=== PATIENT | female | born 1975 | race Caucasian/White ===

== ENCOUNTER 2022-03-24 11:15 | Outpatient (CLI) | payer BC, SELFPAY ==
[2022-03-24 13:34] LABS: Vitamin D 25 Hydroxy* 57 ng/mL (30-80)
[2022-03-24 16:40] LABS: Chlamydia DNA Amplified* NOT DETECTED (No Detected); GC DNA Amplified* NOT DETECTED (No Detected)
== END 2022-03-24 11:16 | disposition home or self-care (01) ==
PROVIDERS: Visit Provider Registered Nurse
DX: Z01.419 Encounter for gynecological examination (general) (routine) without abnormal findings (principal); F41.9 Anxiety disorder, unspecified; R53.83 Other fatigue; Z86.39 Personal history of other endocrine, nutritional and metabolic disease; Z11.3 Encounter for screening for infections with a predominantly sexual mode of transmission
CPT/HCPCS: 82306; 84443; 87491; 87591

== ENCOUNTER 2022-04-02 10:46 | Outpatient (CLI) | payer BC, SELFPAY ==
--- NOTE | 2022-04-02 10:45 | CRLHL7_ITS ---
For Patients: As a result of the Century Cures Act, medical imaging exams and procedure reports are released immediately into your electronic medical record. You may view this report before your referring provider. If you have questions, please contact your health care provider. BILATERAL DIAGNOSTIC MAMMOGRAM WITH COMPUTER-AIDED DETECTION AND TOMOSYNTHESIS CLINICAL HISTORY: LEFT breast lump. COMPARISON: 02/06/2021, 01/04/20, 11/03/18 and 09/23/2017. TECHNIQUE: Digital BILATERAL mammogram in 4 projections. Computer-aided detection and tomosynthesis were used. BREAST COMPOSITION: There are scattered areas of fibroglandular density FINDINGS: 3D CC/MLO mammogram submitted BILATERALLY. Benign calcifications within the periareolar breast tissue bilaterally corresponding to the area of palpable concern. No evidence of malignancy. Normal fibroglandular tissues. No architectural distortion or suspicious masses. No adenopathy. IMPRESSION: No evidence of malignancy. RECOMMENDATIONS: Annual bilateral screening mammography. BI-RADS Category 2: Benign Results and recommendations discussed with the patient. A lay language report of this examination will be provided to the patient. Dictated by Garrett Diaz MD @ 04/02/2022 11:42:56 AM/brian JACKY/Dictated by: Garrett Diaz MD @ 04/02/2022 11:43:00 AM (Electronically Signed)
== END 2022-04-02 10:47 | disposition home or self-care (01) ==
LOC: MAMMO 10:46
PROVIDERS: Visit Provider Registered Nurse
DX: N63.20 Unspecified lump in the left breast, unspecified quadrant (principal)
CPT/HCPCS: 77066; G0279

== ENCOUNTER 2023-05-06 08:41 | Outpatient (CLI) | payer BC, SELFPAY ==
--- NOTE | 2023-05-06 10:16 | W.ANESCHARGE ---
Anesthesia Charges Start Date/Time Anesthesia Start Date: 05/06/23 Anesthesia Start Time: 09:50 Stop Date/Time Anesthesia Stop Date: 05/06/23 Anesthesia Stop Time: 10:14
== END 2023-05-06 08:42 | disposition home or self-care (01) ==
PROVIDERS: PCP Registered Nurse; Visit Provider Internal Medicine
DX: Z12.11 Encounter for screening for malignant neoplasm of colon (principal); K63.5 Polyp of colon
CPT/HCPCS: 00811; 45380; 45385; 88305; J2704

== ENCOUNTER 2023-06-08 13:30 | Outpatient (CLI) | payer BC, SELFPAY ==
--- NOTE | 2023-06-08 14:00 | CRLHL7_ITS ---
For Patients: As a result of the Cures Act, medical imaging exams and procedure reports are released immediately into your electronic medical record. You may view this report before your referring provider. If you have questions, please contact your health care provider. BILATERAL SCREENING MAMMOGRAM WITH COMPUTER-AIDED DETECTION AND TOMOSYNTHESIS TECHNIQUE: CC and MLO views were obtained. These mammographic images have been obtained using full-field digital technique. These mammographic images were interpreted with the benefit of computer-aided detection. Breast Tomosynthesis was used in this interpretation. COMPARISON FILM: 04/02/22, 02/06/21, 01/04/20. FINDINGS: The breasts are heterogeneously dense, which may obscure small masses IMPRESSION: There is no radiographic evidence for malignancy. ASSESSMENT: BI-RADS Category 1: Negative RECOMMENDATION: Routine screening mammogram in 1 year. A lay language report of this examination will be provided to the patient. Garrett Diaz M.D. Diagnostic Radiologist [email or web address] ESTELLA/[email or web address] alberto / be/Dictated by: Garrett Diaz MD @ 06/10/2023 10:14:00 AM (Electronically Signed)
== END 2023-06-08 13:31 | disposition home or self-care (01) ==
LOC: MAMMO 13:31
PROVIDERS: PCP Registered Nurse; Visit Provider Registered Nurse
DX: Z12.31 Encounter for screening mammogram for malignant neoplasm of breast (principal); R92.2 Inconclusive mammogram
CPT/HCPCS: 77063; 77067

== ENCOUNTER 2023-06-15 09:00 | Outpatient (RCR) | payer BC, SELFPAY | END 2023-10-13 23:59 | disposition home or self-care (01) | PROVIDERS: PCP Registered Nurse; Visit Provider Registered Nurse | DX: N39.3 Stress incontinence (female) (male) (principal); R27.8 Other lack of coordination; Z51.89 Encounter for other specified aftercare | CPT/HCPCS: 97110; 97140; 97162; 97535 ==

== ENCOUNTER 2024-06-13 10:19 | Outpatient (CLI) | payer BC, SELFPAY ==
--- NOTE | 2024-06-13 10:15 | CRLHL7_ITS ---
For Patients: As a result of the Century Cures Act, medical imaging exams and procedure reports are released immediately into your electronic medical record. You may view this report before your referring provider. If you have questions, please contact your health care provider. BILATERAL SCREENING MAMMOGRAM WITH COMPUTER-AIDED DETECTION AND TOMOSYNTHESIS TECHNIQUE: CC and MLO views were obtained. These mammographic images have been obtained using full-field digital technique. These mammographic images were interpreted with the benefit of computer-aided detection. Breast Tomosynthesis was used in this interpretation. COMPARISON FILM: 06/08/23, 04/02/22, 02/06/21. FINDINGS: There are scattered areas of fibroglandular density. IMPRESSION: There is no radiographic evidence for malignancy. ASSESSMENT: BI-RADS Category 1: Negative RECOMMENDATION: Routine screening mammogram in 1 year. A lay language report of this examination will be provided to the patient. Garrett Diaz M.D. Diagnostic Radiologist [email or web address] SP/Dictated by: Garrett Diaz MD @ 06/13/2024 12:32:00 PM (Electronically Signed)
== END 2024-06-13 10:20 | disposition home or self-care (01) ==
LOC: MAMMO 10:20
PROVIDERS: Visit Provider Registered Nurse
DX: Z12.31 Encounter for screening mammogram for malignant neoplasm of breast (principal)
CPT/HCPCS: 77063; 77067

== ENCOUNTER 2025-07-17 08:57 | Outpatient (CLI) | payer BC, SELFPAY ==
--- NOTE | 2025-07-17 09:15 | CRLHL7_ITS ---
For Patients: As a result of the Century Cures Act, medical imaging exams and procedure reports are released immediately into your electronic medical record. You may view this report before your referring provider. If you have questions, please contact your health care provider. INDICATION: BILATERAL SCREENING MAMMOGRAM, ASYMPTOMATIC 49 Y/O FEMALE COMPARISON: 06/13/2024, 06/08/2023, 04/02/2022 TECHNIQUE: Digital mammogram in CC and MLO projections including computer-aided detection (CAD) and tomosynthesis. BREAST COMPOSITION: The breasts are heterogeneously dense, which may obscure small masses. FINDINGS: No suspicious findings. ASSESSMENT: BI-RADS 1 Negative RECOMMENDATION: Annual screening mammogram. A lay language report of this examination will be provided to the patient. Dictated by: Garrett Diaz MD @ 07/17/2025 10:22:54 (Electronically Signed)
== END 2025-07-17 08:58 | disposition home or self-care (01) ==
LOC: MAMMO 08:58
PROVIDERS: Visit Provider Registered Nurse
DX: Z12.31 Encounter for screening mammogram for malignant neoplasm of breast (principal); R92.333 Mammographic heterogeneous density, bilateral breasts
CPT/HCPCS: 77063; 77067